=== PATIENT | female | born 1975 ===

== ENCOUNTER 2017-08-10 09:50 | Outpatient (CLI) | payer OTHER | END 2017-08-10 10:15 | disposition home or self-care (01) | LOC: RAD 09:50 | DX: M12.9 Arthropathy, unspecified (principal); M19.90 Unspecified osteoarthritis, unspecified site ==

== ENCOUNTER 2018-05-05 10:37 | Emergency (ER) | payer OTHER ==
[~2018-05-05] VITALS: Ht 165.1 cm; Wt 68.0 kg
[2018-05-05] MEDS ORDERED: IBUPROFEN800 MG PO (12:51)
== END 2018-05-05 14:15 | disposition home or self-care (01) ==
LOC: ER 10:37
DX: S22.42XA Multiple fractures of ribs, left side, initial encounter for closed fracture (principal); W22.8XXA Striking against or struck by other objects, initial encounter; Y93.89 Activity, other specified; Y92.098 Other place in other non-institutional residence as the place of occurrence of the external cause; Y99.8 Other external cause status

== ENCOUNTER 2018-05-31 13:07 | Emergency (ER) | payer OTHER ==
[~2018-05-31] VITALS: Ht 165.1 cm; Wt 68.0 kg
[~2018-05-31 13:07] MED LIST: IBUPROFEN800 MG PO
[2018-05-31] MEDS ORDERED: INTESTINEX680 M1 (13:46)
[2018-05-31] MEDS ORDERED: ZANTAC150 M3 (13:46)
== END 2018-05-31 21:02 | disposition home or self-care (01) ==
LOC: ER 13:07
DX: K80.20 Calculus of gallbladder without cholecystitis without obstruction (principal)

== ENCOUNTER 2018-06-15 15:14 | Outpatient (CLI) | payer OTHER ==
[~2018-06-15 15:14] MED LIST changes: +INTESTINEX680 M1; +ZANTAC150 M3
== END 2018-06-15 15:29 | disposition home or self-care (01) ==
LOC: RAD 15:14
DX: K80.20 Calculus of gallbladder without cholecystitis without obstruction (principal); Z01.810 Encounter for preprocedural cardiovascular examination

== ENCOUNTER 2018-06-18 08:25 | Outpatient (CLI) | payer OTHER | END 2018-06-18 09:00 | disposition home or self-care (01) | LOC: NUCLEAR 08:25 | DX: I10 Essential (primary) hypertension (principal); R07.89 Other chest pain ==

== ENCOUNTER 2018-07-05 06:04 | Day surgery (SDC) | payer OTHER ==
[2018-07-05] MEDS ORDERED: KEFLEX500 MG PO (09:16)
[2018-07-05] MEDS ORDERED: ULTRACET PO (09:18)
== END 2018-07-05 11:35 | disposition home or self-care (01) ==
LOC: CIR.AMB 06:04
DX: K80.10 Calculus of gallbladder with chronic cholecystitis without obstruction (principal); K66.0 Peritoneal adhesions (postprocedural) (postinfection)

== ENCOUNTER 2018-07-15 06:56 | Outpatient (CLI) | payer OTHER ==
[~2018-07-15 06:56] MED LIST changes: +KEFLEX500 MG PO; +ULTRACET PO
== END 2018-07-15 07:05 | disposition home or self-care (01) ==
LOC: LAB 06:56
DX: R10.9 Unspecified abdominal pain (principal); Z51.81 Encounter for therapeutic drug level monitoring

== ENCOUNTER 2018-07-15 08:44 | Outpatient (CLI) | payer OTHER | END 2018-07-15 16:10 | disposition home or self-care (01) | LOC: TOM 08:44 | DX: R10.9 Unspecified abdominal pain (principal) ==